=== PATIENT | male | born 1980 | race Caucasian/White ===

== ENCOUNTER 2023-08-17 17:52 | Emergency (ER) | payer BC, OTHER ==
[~2023-08-17] VITALS: Ht 172.7 cm; Wt 100.2 kg
[2023-08-17 18:00] VITALS: BP 141/83; PULSE 87; RESP 20; TEMP 100.6; O2SAT 97
[2023-08-17] MEDS ORDERED: AMOX500C25 PO (18:19)
[2023-08-17] MEDS: KETOROLAC 30 MG/ML VIAL IM ONE (18:25)
== END 2023-08-17 18:48 | disposition home or self-care (01) ==
LOC: MED 17:52
DX: J02.8 Acute pharyngitis due to other specified organisms (principal); B96.89 Other specified bacterial agents as the cause of diseases classified elsewhere; Z79.899 Other long term (current) drug therapy
CPT/HCPCS: 87081; 96372; 99283; J1885

== ENCOUNTER 2023-08-20 19:24 | Emergency (ER) | payer BC, OTHER ==
[~2023-08-20] VITALS: Ht 175.3 cm; Wt 96.6 kg
[~2023-08-20 19:24] MED LIST: AMOX500C25 PO
[2023-08-20 19:50] VITALS: BP 140/82; PULSE 81; RESP 18; TEMP 97.9; O2SAT 98
[2023-08-20] MEDS: KETOROLAC 30 MG/ML VIAL IM ONE (20:24)
== END 2023-08-20 20:54 | disposition home or self-care (01) ==
LOC: MED 19:24
DX: J02.0 Streptococcal pharyngitis (principal); Z79.899 Other long term (current) drug therapy
CPT/HCPCS: 96372; 99283; J1885